=== PATIENT | male | born 1970 | race African-American/Black ===

== ENCOUNTER 2025-01-28 05:50 | Inpatient (IN) | payer OTHER ==
[2025-01-28] VITALS (22 sets, daily range): BP systolic 112–173; BP diastolic 79–122; PULSE 59–80; RESP 12–16; TEMP 98.3–99; O2SAT 96–99
[~2025-01-28] VITALS: Ht 185.4 cm; Wt 113.0 kg
[2025-01-28] MEDS: ringers solution, lacted 1,000 ML IV SCH ×2 (05:30→19:47)
[~2025-01-28 05:50] MED LIST: HYDR-3686 PO; LIDO1ADH67 TOP; TRAM50TA2 PO
[2025-01-28] MEDS: ceFAZolin 2gm in dextrose, iso 50 ML IV ONE (05:59)
[2025-01-28] MEDS: tranexamic acid 1gm/0.7% sal. 100 ML IV ONE (05:59)
[2025-01-28] MEDS: VANCOMYCIN 1,500MG inj. 1,500 MG in normal saline 500ml IV soln 300 ML IV ONE (06:26)
[2025-01-28] MEDS ORDERED: vancomycin 1,000mg inj ONE (06:56)
[2025-01-28] MEDS ORDERED: MIDAZolam 1mg/ml 10ml vial ONE (07:35)
[2025-01-28] MEDS ORDERED: fentaNYL/PF 50MCG/1 ML 2ML syringe ONE (07:35)
[2025-01-28] MEDS ORDERED: diphenhydrAMINE 50 mg/ml inj ONE ×2 (07:38→08:13)
[2025-01-28] MEDS ORDERED: cloNIDine hcl/PF 100mcg/ml inj ONE (07:59)
[2025-01-28] MEDS ORDERED: dexamethasone sod phosphate 4mg/ml inj. ONE (08:13)
[2025-01-28] MEDS ORDERED: ROPIVAcaine 0.5% (5mg/ml) 30ml vial ONE (08:13)
[2025-01-28] MEDS ORDERED: proCHLORperazine 10 MG/2 ml inj IV PRN (10:20)
[2025-01-28] MEDS ORDERED: morphine 2 MG/ML inj. syringe IV PRN (10:20)
[2025-01-28] MEDS ORDERED: ondansetron/PF 4mg/2ml inj IV PRN ×2 (10:20→11:10)
[2025-01-28] MEDS ORDERED: enalaprilat 1.25mg/ml 2ml vial IV PRN (10:20)
[2025-01-28] MEDS ORDERED: labetalol 20mg/4ml (5mg/ml) syringe IV PRN (10:20)
[2025-01-28] MEDS ORDERED: ROPIVAcaine 0.2% (10 MG/5 ML) BOLUS INJECTION ADDCANAL PRN (10:20)
[2025-01-28] MEDS ORDERED: meperidine/PF 25mg/ml syringe IV PRN ×3 (10:20)
--- NOTE | 2025-01-28 10:25 | ANESTHESIA RECORDS ---
Nerve Block Providers to CC ~ Diagnosis: Nerve Block requested by: SHERRELL MEJIA MD Neuraxial/Peripheral Nerve Block requested for Post-operative analgesia by Physician above DIAGNOSIS: Post-operative pain. (Body Area) Shoulder: [ ] Arm: [ ] Hand: [ ] Hip: [ ] Knee: [___Right ] Ankle: [ ] Foot: [ ] Leg: [ ] Abdomen: [ ] Other: [ ] Post-operative pain expected to be/is inadequately managed by oral or IV medicines. Regional anesthetic expected to facilitate rehabilitation and/or discharge from facility. Other:[ ] Procedure Performed: Femoral / Saphenous: Right Time out Done?: Yes Time of Time out: 10:40 Procedure Details: PROCEDURE DETAILS: Risks, benefits and alternatives explained Informed consent obtained, and patient wishes to proceed Conscious sedation with indicated monitors Patient positioned, pertinent anatomy defined, sterile technique used Needle used: [ ] 3 1/8 inch Stimuplex Ultra 22ga [ ] 4 inch Stimuplex Ultra 20ga [x ] 6 inch Stimuplex Ultra 20ga [x ] 6 inch, Quikbloc over the needle catheter set 20ga [ ] 4 inch Quikbloc over the needle catheter set 20ga [ ]Other: [ ] Loss of twitch @ [ N/A ]mA [x ] Single Injection & [x ] Catheter Ultrasound Guidance Used: [x ] Yes [ ] No Attempts:[ once ] Medicines injected: [x ]Clonidine Amt:[ 80 mcgs ] [x ]Dexamethasone Amt:[___4 mgs ] [x ]Ropivacaine Amt:[ 0.5% 25 cc ] [x ]Bupivacaine Amt:[__0.375% 16 cc ] [ ]Lidocaine Amt:[ ] [ ]Exparel 1.33%:[ ] [ ]Epinephrine Amt[ ] [ ]Other: [ ] Intermittent aspiration during local anesthetic administration No symptoms of intraneural or intravenous injection Patient tolerated procedure well Comments Rt Adductor Canal continuous nerve block using QUIKBLOC over the needle catheter set. Done under spinal anesthesia at the end of the procedure. Pt supine with Rt leg rotated to Rt . Easy visualization of Adductor Canal with ultra sound anterolateral to Femoral artery in the middle of thigh. Onq # 16 Quikboc catheter over needle advanced into the Adductor canal 5 cc of local anesthetic injected slowly. visualization of local anesthetic spreading in the sheath. 15 more ccs injected. 5 cc of local anesthetic is injected into nerve to Vastus medialis and few cc is injected into ant femoral cutaneous nerves Needle taken out and catheter secured at the skin with steri strips and opsite. Meaningful conversation throughout. No Pain or discomfort during injection. Pt tolerated procedure well. Will run continuous infusion through catheter postop. Rt IPACK Block: (Infiltration Between PoplitealArtery and Capsule of the Knee). Knee is flexed with the patient in supine position. Using a curvilinear probe placed under the knee, Popliteal vessels are identified. Block needle is inserted from Medial part of the knee about the Patellar level in between popliteal vessels and femoral condyles (capsule of knee) and 20 ml 0.375% local anesthetic solution is infiltrated in the space. MANDY BANKS MD January 28, 2025 10:25
[2025-01-28] MEDS ORDERED: BUPIVAcaine/PF 7.5mg/ml (0.75%) 10ml vial ONE (10:34)
[2025-01-28] MEDS ORDERED: 0.9 % SODIUM CHLORIDE 10 ML VIAL ONE (10:37)
[2025-01-28] MEDS ORDERED: oxyCODONE IR 5mg (immed. release) tablet PO PRN (11:10)
[2025-01-28] MEDS ORDERED: naloxone 0.4 mg/ml inj IV PRN (11:10)
[2025-01-28] MEDS ORDERED: HYDROmorphone inj. 0.5 MG/0.5 ML DISP.SYRIN IV PRN (11:10)
[2025-01-28] MEDS ORDERED: magnesium hydroxide 30ml (MOM) UD suspension PO PRN (11:10)
[2025-01-28] MEDS ORDERED: diphenhydrAMINE 25mg capsule PO PRN ×2 (11:10)
[2025-01-28] MEDS ORDERED: bisacodyl 10mg suppository rectal RC PRN (11:10)
[2025-01-28] MEDS: morphine 4 MG/ML inj SYRINge IV PRN (11:17)
[2025-01-28] MEDS: acetaminophen 1,000mg/100ml IV 100 ML IV ONE (11:26)
[2025-01-28] MEDS ORDERED: HYDROmorphone/PF 0.2 MG/ML SYRINGE IV PRN (11:30)
[2025-01-28] MEDS: ROPIVAcaine 0.2%/PF PUMP/bolus 545 ML ADDCANAL SCH (11:33)
--- NOTE | 2025-01-28 11:35 | OPERATIVE REPORT ---
Operative Report Providers to ~ Date of Procedure: January 28, 2025 Pre-Operative Diagnosis: Degenerative joint disease severe right knee Post-Operative Diagnosis SAME as PRE-Op Procedure Performed Right total knee arthroplasty Press-Fit Surgeon: Sherrell Carmona MD Certified Optician Rob Snell MD Anesthesiologist: Alfonso Ward Type of Anesthesia: Other (Adductor canal block with on Q pump I pack block), Spinal Findings: Patient was found to have severe grade 4 tricompartmental degenerative joint disease Complications None Prosthetics\Implants used: Persona 11 standard Press-Fit femoral component. Persona 38 mm Press-Fit patellar component. Persona size G Press-Fit tibial base plate. Persona medial congruent 12 mm polyethylene. Estimated Blood Loss: 250-300 mL Specimen Removed: Degenerative bone , meniscal, and cruciate tissue Description of Procedure: The patient is taken to the operating room after I had obtained informed consent reviewing the indications risks benefits limitations and potential complications to his understanding having answer all of his questions I signed his right knee he was given prophylactic intravenous antibiotics. Was now transported to the operating room where he was given a spinal anesthetic placed in a supine position on the OR table SCDs were placed in his left leg a well-padded upper thigh tourniquet was placed in his right thigh surgical time-out was taken per protocol after the hip and leg were prepped and draped in usual sterile orthopaedic fashion. Ioban skin drape draping with protection was used as well. An anterior incision measuring approximately 10 in was made a medial parapatellar approach was accomplished without difficulty. Patella was inverted and exposed finding were consistent with degenerative joint disease severe. Surrounding osteophytes removed and osteotomy using a freehand technique to remove the articular surface of the patella was accomplished removi ng the proximate same thickness as the implant this was sized to a size 30 day and was drilled in preparation of the implant. Patellar skid was applied to the patella then this is allowed to subluxed laterally with the knee going into flexion exposing the distal femur. Distal femoral revealed grade 4 degenerative changes both in the medial and lateral weight-bearing surfaces of the reaming osteophytes bilaterally. Intramedullary canal was drilled was medullary zenon Reamer/drill bit and the guide zenon was placed on the medullary canal. 6 degree valgus distal femoral cutting block was applied with a and pinned into place the zenon was removed in the distal femoral cut was made with the oscillating saw The knee was placed in the hyperflexion to expose the tibial plateau releasing the meniscal and cruciate tissues to aid in placement of medial lateral and posterior retractors. Medullary canal was drilled with a intramedullary drill bit guide zenon was placed and the osteotomy of the proximal tibia for a 10-12 mm cut was made after the cutting block was pinned into place in the intramedullary zenon was removed. This was removed in total making takeing extreme care to avoid neurovascular structures posteriorly. Once this was removed residual meniscal tissue was also excised as well as anterior cruciate tissue proximal tibia was sized to a size G. Tension diameter was used to measure the tension of the knee in extension and in flexion and was equalized by moving the femoral component posteriorly 2 mm. Distal femur was sized with a posterior referencing guide to a size 11 and position for a 3 degree external rotation cut. For one cutting block was applied an anterior and posterior cuts were made as well as chamfer cuts without any difficulty trial reduction of the components were now used in the knee was found to be stable with a 12 mm insert achieving full extension correcting his hyperextension laxity unstable in and full flexion. Removal of the trial components and placement of the Press-Fit tibia and femoral components ensued after releasing the tourniquet ensuring that no arterial bleeders were present hemostasis was controlled with electrocautery. Implantation of the tibia 1st followed by the femoral component was excellent stability because this is quality of bone was excellent the size 12 mm medial congruent implant was placed in the knee and then he was found to have full range of motion that was stable. The patellar component was Press-Fit with a patellar clamp and tracked centrally through range of motion once this was placed into place. 3 L of pulsatile antibiotic irrigation 1 L antiseptic irrigation was used prior to closure. Closure was accomplished with 1. Ethibond in interrupted fashion for the medial parapatellar approach 2-0 Vicryl subcuticularly was used for closure and skin was closed with skin manuel. Silver impregnated gauze Telfa 4x4s held in position with op-site dressing was applied knee wrap was applied. Patient had good distal pulses and capillary refill before being placed in the gurney. Patient was given an adductor canal block with on Q pump at this time by anesthesia and an IPAP block. He was then transferred to the recovery room in stable condition. There were no complications during this procedure. Counts repoted as correct: Yes CROSS,SHERRELL N MD January 28, 2025 11:35
[2025-01-28] MEDS: HYDROmorphone/PF 0.2 MG/ML SYRINGE IV PRN (11:42)
--- NOTE | 2025-01-28 12:47 | RADIOLOGY REPORT ---
CLINICAL INDICATION: Postop TECHNIQUE: 2 radiographic views of the right knee were obtained. Comparison: None FINDINGS/IMPRESSION: There is no evidence of acute fracture or dislocation. Status post right knee arthroplasty with postsurgical changes visualized.
[2025-01-28] MEDS: gabapentin 300mg capsule PO SCH (12:54)
[2025-01-28] MEDS: HYDROmorphone 1 mg/ml syringe IV PRN (12:55)
[2025-01-28] MEDS: potassium Cl 20mEq in NS 1,000 ML IV SCH (12:56)
[2025-01-28] MEDS ORDERED: traMADol 50MG tablet PO PRN (13:10)
[2025-01-28] MEDS ORDERED: VANCOMYCIN 1,500MG inj. 1,500 MG in normal saline 500ml IV soln 300 ML IV ONE (13:12)
[2025-01-28] MEDS ORDERED: ceFAZolin 2gm in dextrose, iso 50 ML IV ONE (13:12)
[2025-01-28] MEDS ORDERED: tranexamic acid 1gm/0.7% sal. 100 ML IV ONE (13:13)
[2025-01-28] MEDS ORDERED: ringers solution, lacted 1,000 ML IV SCH (13:16)
[2025-01-28] MEDS: famotidine 20mg tablet PO ONE ×2 (13:20→15:09)
[2025-01-28] MEDS: tranexamic acid inj. 1,130 MG in normal saline 100ml IV soln 100 ML IV ONE (15:08)
[2025-01-28] MEDS: oxyCODONE IR 5mg (immed. release) tablet PO PRN (15:09)
[2025-01-28] MEDS: acetaminophen 325mg tablet PO SCH (15:09)
[2025-01-28] MEDS: ceFAZolin/D5W- 1GM premix 50 ML IV SCH (16:18)
[2025-01-28] MEDS: ROPIVAcaine inj 200 MG, epiNEPHrine inj 0.6 MG, morphine 10mg/ml inj. 5 MG in normal sa... IU STA (19:47)
[2025-01-28] MEDS: sennosides 8.6mg tablet PO SCH (21:57)
[2025-01-28] MEDS: vancomycin/NS 1 GM ADD-VANTAGE 250 ML IV SCH (21:58)
[2025-01-28] MEDS: hydrOXYzine 25 MG tablet PO SCH (22:01)
[2025-01-29 02:00] VITALS: BP 121/74; PULSE 62; RESP 18; TEMP 99.3; O2SAT 98
[2025-01-29 06:00] VITALS: BP 142/78; PULSE 64; RESP 16; TEMP 98.4; O2SAT 99
[2025-01-29 08:00] VITALS: RESP 18; O2SAT 98
[2025-01-29] MEDS: LIDOcaine 5% patch TP SCH (08:00)
[2025-01-29] MEDS: enoxaparin 40mg/0.4ml syringe SQ SCH (08:00)
[2025-01-29 09:26] LABS: BASOPHILS % (AUTO) 0.1 % (0-1); EOSINOPHILS % (AUTO) 0.1 % (0-6); HEMATOCRIT 34.8 % (42.0-52.0); HEMOGLOBIN 11.8 g/dl (14.0-17.9); LYMPHOCYTES # (AUTO) 1.3 X10'3 (1.1-4.8); LYMPHOCYTES % (AUTO) 20.6 % (21-51); MEAN CORPUSCULAR HEMOGLOBIN 29.5 PG (27.0-31.0); MEAN CORPUSCULAR HGB CONC 33.8 g/dL (33.0-36.5); MEAN PLATELET VOLUME 8.6 FL (7.4-10.4); MONOCYTES # (AUTO) 0.4 X10'3 (0-0.9); MONOCYTES % (AUTO) 6.7 % (2-12); NEUTROPHILS # (AUTO) 4.7 X10'3 (1.8-7.7); NEUTROPHILS % (AUTO) 72.5 % (42-75); PLATELET COUNT 190 X10'3 (140-440); RED CELL DISTRIBUTION WIDTH 13.7 % (11.5-14.5); WHITE BLOOD COUNT 6.5 X10'3 (4.5-11.0)
[2025-01-29 10:00] VITALS: BP 134/83; PULSE 92; RESP 20; TEMP 98.1; O2SAT 98
[2025-01-29 18:00] VITALS: BP 147/88; PULSE 94; RESP 16; TEMP 98.7; O2SAT 99
[2025-01-29] MEDS: celeCOXIB 100mg capsule PO SCH (20:00)
[2025-01-29 22:00] VITALS: BP 136/75; PULSE 88; RESP 16; TEMP 99.9; O2SAT 99
[2025-01-30 06:00] VITALS: BP 135/85; PULSE 82; RESP 16; TEMP 98.6; O2SAT 97
[2025-01-30 10:00] VITALS: BP 168/99; PULSE 84; RESP 16; TEMP 98.2; O2SAT 100
[2025-01-30 18:00] VITALS: BP 177/89; PULSE 82; RESP 16; TEMP 99; O2SAT 100
[2025-01-30 22:00] VITALS: BP 142/101; PULSE 82; RESP 18; TEMP 98.8; O2SAT 96
[2025-01-31] MEDS: acetaminophen 325mg tablet PO PRN (05:00)
[2025-01-31 06:00] VITALS: BP 127/80; PULSE 116; RESP 18; TEMP 100.1; O2SAT 96
[2025-01-31 14:24] VITALS: RESP 18
== END 2025-01-31 14:40 | DRG 470 ==
LOC: PAS IN 05:50 → EEVIPCON 07:30 → ORTHO 4S 12:33
PROVIDERS: ADMIT Orthopaedic Surgery; ATTEND Orthopaedic Surgery
PROC: 0SRC0JA Replacement of Right Knee Joint with Synthetic Substitute, Uncemented, Open Approach (ICD-10-PCS; principal; 2025-01-28 07:38)
DX: M17.11 Unilateral primary osteoarthritis, right knee (principal)
CPT/HCPCS: Z7506; Z7508; 36415; 73560; 82948; 85025; 87081; 97110; 97116; 97161; 97530; A4215; A6253; A6258; A6446; A6449; A6454; A6455; A7000; C1776; C9250; G0378; J0131; J0690; J0735; J1100; J1171; J1200; J1650; J2250; J2270; J2795; J3010; J3370; J3480; J3490; J7040; J7050; J7120; Q0177